=== PATIENT | female | born 1940 | race Caucasian/White ===

== ENCOUNTER 2016-09-09 07:02 | Day surgery (SDC) | payer MEDICAID ==
[~2016-09-09] VITALS: Ht 149.9 cm; Wt 50.8 kg
[2016-09-09] VITALS (21 sets, daily range): BP systolic 89–148; BP diastolic 56–82
[~2016-09-09 07:02] MED LIST: ACET-1697 PO; AMLO10TA2 PO; ASPI-586 PO; Aspirin PO; CLOP75TA69 PO; CLPD75T GT; CLPD75T PO; DOCU-238 PO; DOCU100C37 PO; FLUO20CA42 PO; HYDR12.570 PO; INUL1TAB3 PO; LEVO500T80 PO; LISI20TA PO; METO-274 PO; OXYC-188 PO; PANT40TA3 PO; POLY119P5 PO; POLY17PO6 PO; TRIM100T PO
[2016-09-09] MEDS ORDERED: HEParin (CATH LAB) 2,000 ML IV ONE (07:03)
[2016-09-09] MEDS ORDERED: LIDOCAINE 1% INJ 20 ML (XYLOCAINE) VIAL ONE (07:03)
[2016-09-09] MEDS ORDERED: NS IV 1000 ML 1,000 ML ONE (07:03)
--- OUTSIDE RECORDS SUMMARY | 2016-09-09 07:06 | XMS REPORT | Continuity of Care Document ---
Author Author [facility] Organization [facility] Address Unknown Phone Unavailable Care Team Providers Care White Lead Grinder Name Role Phone ELVA FRANCO MD PCP Insurance Providers Payer Name Policy Number Subscriber Name Relationship [employer] [facility] [employer] [id number] Linette Marie 18 Self / Same As Patient Advance Directives Directive Response Recorded Date/Time Advance Directives No 10/26/15 2:19pm Health Care Power of Records Management Director No 10/26/15 2:19pm Organ Donor No 10/26/15 2:19pm Resuscitation Status Full Code 10/26/15 2:19pm Problems Active Problems Medical Problem Onset Date Status Hyponatremia Unknown Acute Peripheral vascular disease Unknown Acute Tobacco dependence Unknown Acute Medications Current Home Medications Medication Dose Units Route Directions Days/Qty Instructions Start Date Hydrochlorothiazide 12.5 Mg 12.5 Mg Oral Daily 09/22/14 Acetaminophen 500 Mg 1,000 Mg Oral Bedtime as needed for Pain TAKES 2 ( 500MG) TABLET 09/22/14 Polyethylene Glycol 3350 119 Gm 17 Gm Oral Daily as needed for Constipation 10/18/15 Docusate Sodium 100 Mg 100 Mg Oral Daily as needed for Constipation 10/18/15 Pantoprazole Sodium 40 Mg 40 Mg Oral Daily 10/18/15 Levofloxacin 500 Mg 500 Mg Oral Daily last dose 10/23/15 10/18/15 Fluoxetine Hcl 20 Mg 20 Mg Oral Bedtime 10/18/15 Amlodipine Besylate 10 Mg 10 Mg Oral Daily 10/18/15 Metoprolol Succinate 100 Mg 100 Mg Oral Daily 04/27/16 Past Home Medications Medication Directions Ordered Status Lisinopril 20 Mg Tablet, 20 Mg Oral Daily 09/22/14 Discontinued Clopidogrel Bisulfate 75 Mg Tab, 75 Mg Oral Daily 09/23/14 Discontinued [Aspirin] 81 Mg Tabec, 81 Mg Oral Daily 09/23/14 Discontinued Clopidogrel Bisulfate 75 Mg Tab, 75 Mg G Tube Daily 09/23/14 Discontinued Aspirin 81 Mg Tablet.dr, 81 Mg Oral Daily 01/31/15 Discontinued Polyethylene Glycol 3350 17 Gm Powd.pack, 17 Gm Oral Daily 02/02/15 Discontinued Docusate Sodium 100 Mg Capsule, 100 Mg Oral Twice A Day 02/02/15 Discontinued Inulin/Chromium Picolinate 1 Each Tab.chew, 1 Each Oral D 02/02/15 Discontinued Oxycodone Hcl/Acetaminophen 1 Each Tablet, 1-2 Tab Oral Every 6 Hours as needed for Pain 02/03/15 Discontinued Trimethoprim 100 Mg Tablet, 100 Mg Oral Bedtime 02/03/15 Discontinued Pantoprazole Sodium 40 Mg Tablet., 40 Mg Oral Daily 02/08/15 Discontinued Clopidogrel Bisulfate 75 Mg Tablet, 75 Mg Oral Daily 10/18/15 Discontinued Social History Social History Problem Response Recorded Date/Time Alcohol Use Denies Use 02/02/2015 10:15pm Recreational Drug Use No 02/02/2015 10:15pm Recent Foreign Travel No 10/26/2015 2:24pm Smoking Status Current Everyday Smoker 10/26/2015 2:21pm Do you dip or chew tobacco? No 02/02/2015 10:15pm Query Response Start Date Stop Date Smoking Status Current Everyday Smoker Hospital Discharge Instructions Patient Instructions Physician Instructions Plan of Care/Instructions/FU: Hold blood thinner for 5 more days before restarting. Hold Plavix. Follow up with Dr. Niño in 2 weeks. Activity as Tolerated: Yes Discharge Diet: No Restrictions Care Plan Patient Instructions:: Hold blood thinner for 5 more days before restarting. Hold Plavix.Follow up with Dr. Niño in 2 weeks. Plan of Care Discharge Date 10/26/15 4:56pm Instructions/Education Provided COLONOSCOPY Colonoscopic Polypectomy (ED) Prescriptions See Medication Section Functional Status No functional status results. Allergies, Adverse Reactions, Alerts Allergen Type Severity Reaction Status Last Updated Sulfa (Sulfonamide Antibiotics) ([id number]) Allergy Unknown Active 12/28 Cephalexin Allergy Unknown Active 09/28/07 Immunizations No immunization records. Vital Signs Acute Vital Signs Vital Response Date/Time Temperature (Fahrenheit) 97.0 degrees F (97.6 - 99.5) 10/26/2015 4:53pm Temperature (Calculated Celsius) 36.45397 degrees C (36.4 - 37.5) 10/26/2015 4:53pm Temperature Source Tympanic 10/26/2015 4:53pm Pulse Rate (adult) 65 bpm (60 - 90) 10/26/2015 4:53pm Respiratory Rate 18 bpm (12 - 24) 10/26/2015 4:53pm O2 Sat by Pulse Oximetry 99 % (88 - 100) 10/26/2015 4:53pm Blood Pressure 132/75 mm Hg 10/26/2015 4:53pm Pain Pain Intensity 0 10/26/2015 4:53pm Height (Feet) 4 feet 10/26/2015 2:25pm Height (Inches) 11.00 inches 10/26/2015 2:25pm Height (Calculated Centimeters) 149.079055 cm 10/26/2015 2:25pm Weight (Pounds) 99 pounds 10/26/2015 2:25pm Weight (Ounces) 0.0 oz 10/26/2015 2:25pm Weight (Calculated Grams) 32246.645 gm 10/26/2015 2:25pm Weight (Calculated Kilograms) 44.242229 kilograms 10/26/2015 2:25pm Calculated BMI 20.0 10/26/2015 2:25pm Results No known relevant diagnostic tests, laboratory data and/or discharge summary. Procedures Procedure Status Date Provider(s) Anesthesia for 30 minutes Active 10/26/15 KRIS NIÑO DO Encounters Encounter Location Arrival/Admit Date Discharge/Depart Date Attending Provider Departed [facility] 10/26/15 1:49pm 4:56pm KRIS NIÑO DO Departed Clinic [facility] 10/18/15 5:39am 10/18/15 10: 50am KRIS NIÑO DO
--- OUTSIDE RECORDS SUMMARY | 2016-09-09 07:06 | XMS REPORT | Continuity of Care Document ---
Author Author [facility] Organization [facility] Address Unknown Phone Unavailable Care Team Providers Care Spring Fitter Helper Name Role Phone ELVA FRANCO MD PCP Insurance Providers Payer Name Policy Number Subscriber Name Relationship [facility] [employer] [id number] Linette Marie 18 Self / Same As Patient Advance Directives Directive Response Recorded Date/Time Advance Directives No 10/26/15 2:19pm Health Care Power of Rn Documentation No 10/26/15 2:19pm Organ Donor No 10/26/15 [...] Reaction Status Last Updated Sulfa (Sulfonamide Antibiotics) ([id number]) Allergy Unknown Active 12/28 Cephalexin Allergy Unknown Active 09/28/07 Immunizations No immunization records. Vital Signs Acute Vital Signs Vital Response Date/Time Temperature (Fahrenheit) 97.0 degrees F (97.6 - 99.5) 10/26/2015 4:53pm Temperature (Calculated Celsius) 36.81328 degrees C (36.4 - 37.5) 10/26/2015 4:53pm [...] 11.00 inches 10/26/2015 2:25pm Height (Calculated Centimeters) 149.078516 cm 10/26/2015 2:25pm Weight (Pounds) 99 pounds 10/26/2015 2:25pm Weight (Ounces) 0.0 oz 10/26/2015 2:25pm Weight (Calculated Grams) 45029.645 gm 10/26/2015 2:25pm Weight (Calculated Kilograms) 44.897111 kilograms 10/26/2015 2:25pm Calculated BMI 20.0 10/26/2015 2:25pm Results No known relevant diagnostic tests, laboratory data and/or discharge summary. Procedures Procedure Status Date Provider(s) Anesthesia for 30 minutes Active 10/26/15 KRIS NIÑO DO Encounters Encounter Location Arrival/Admit Date Discharge/Depart Date Attending Provider Departed [facility] 10/26/15 1:49pm 4:56pm KRIS NIÑO DO Departed Clinic [facility] 10/18/15 5:39am 10/18/15 10: 50am KRIS NIÑO DO
[2016-09-09] MEDS ORDERED: NS IV 1000 ML 1,000 ML IV SCH ×2 (07:20→07:30)
[2016-09-09 07:45] LABS: MEAN PLATELET VOLUME 9.5 FL (7.4-10.4); RED BLOOD COUNT 3.94 10^6/uL (4.35-5.85); RED CELL DISTRIBUTION WIDTH 12.8 % (10.0-14.5); WHITE BLOOD COUNT 6.2 10^3/uL (4.3-11.0)
[2016-09-09 08:00] LABS: PROTHROMBIN TIME PATIENT 12.8 SEC (12.2-14.7)
--- NOTE | 2016-09-09 08:02 | Diagnostic Imaging Report ---
INDICATION: Preoperative evaluation, leg pain. DISCUSSION: Single portable upright view of the chest was obtained, comparison 02/06/2015. Underlying COPD is stable. Stable normal heart size. No focal consolidation, pleural fluid, or pneumothorax. No osseous abnormality. IMPRESSION: 1. Stable changes of COPD. Dictated by: Dictated on workstation # [id number]
[2016-09-09 08:09] LABS: ALBUMIN 4.2 G/DL (3.2-4.5); BILIRUBIN,TOTAL 0.3 MG/DL (0.1-1.0); CALCIUM 9.5 MG/DL (8.5-10.1); CREATININE SERUM 1.01 MG/DL (0.60-1.30); POTASSIUM 4.2 MMOL/L (3.6-5.0); TOTAL PROTEIN 7.2 G/DL (6.4-8.2)
[2016-09-09] MEDS ORDERED: FURO20TA4 PO (08:12)
[2016-09-09] MEDS ORDERED: METO100T2 PO (08:12)
[2016-09-09] MEDS ORDERED: CLOP75TA28 PO (08:12)
[2016-09-09] MEDS ORDERED: FLU TRIvalent (5 YOA+) 2016-17 (AFLURIA) 0.5 ML IM ONE (08:15)
[2016-09-09] MEDS ORDERED: MIDAZOLAM 5 MG/5 ML (VERSED) VIAL ONE (08:59)
[2016-09-09] MEDS ORDERED: fentaNYL INJECTION 100 MCG/2 ML AMP ONE (09:00)
--- NOTE | 2016-09-09 09:13 | Cardiac Procedure Note-CS/ASA ---
Pre-Procedure Note Pre-Op Procedure Note H&P Reviewed The H&P was reviewed, patient examined and no changes noted. Date H&P Reviewed: Sep 09, 2016 Time H&P Reviewed: 09:13 Conscious Sedation Pre-Proced Time Reviewed: 09:13 ASA Class: 3 Airway Mallampati Classification: ([place] appropriate class) I. II. III, IV Lungs Heart ASA score ASA 1: a normal healthy patient ASA 2: a patient with a mild systemic disease (mid diabetes, controlled hypertension, obesity x ASA 3: a patient with a severe systemic disease that limits activity (angina , COPD, prior Myocardial infarction) ASA 4: a patient with an incapacitating disease that is a constant threat to life (CHF, renal failure) ASA 5: a moribund patient not expected to survive 24 hrs. (ruptured aneurysm) ASA 6: a declared brain patient whose organs are being harvested. For emergent operations, add the letter E after the classification Grade 3 Sedation Plan: Analgesia, Amnesia, Plan communicated to team members, Discussed options with patient/fam, Discussed risks with patient/fam Note The patient is an appropriate candidate to undergo the planned procedure, sedation, and anesthesia. The patient immediately re-assessed prior to indication. RENE GHOTRA MD Sep 09, 2016 09:13
[2016-09-09] MEDS ORDERED: HEParin 1000 UNIT/ML (10ML VIAL) FOR BOLUS ONE (09:47)
[2016-09-09] MEDS ORDERED: NITROGLYCERIN DRIP 25 MG/D5W 250 ML IV ONE (09:58)
[2016-09-09] MEDS ORDERED: CLOPIDOGREL 300 MG (PLAVIX) TABLET PO ONE (10:44)
[2016-09-09] MEDS ORDERED: ASPIRIN 325 MG (5 GR) TABLET ONE (10:44)
[2016-09-09] MEDS ORDERED: ACETAMINOPHEN 500 MG TAB (TYLENOL) PO PRN (10:45)
[2016-09-09] MEDS ORDERED: PATIENT MAY USE OWN MEDS, ALL PO SCH (10:45)
[2016-09-09] MEDS: NS IV 1000 ML 1,000 ML IV SCH ×2 (10:45→20:08)
[2016-09-09] MEDS ORDERED: POLYETHYLENE GLYCOL 17 GM (MIRALAX) PACK PO PRN (10:45)
--- NOTE | 2016-09-09 11:38 | DISCHARGE SUMMARY ---
PROCEDURE PHYSICIAN: RENE GHOTRA DATE OF PROCEDURE: 09/09/2016 BRIEF HISTORY: Mrs. Myers is a 76-year-old lady with extensive peripheral arterial disease, had multiple interventions and multiple stents in the past. The patient has been seen in the office; has been having increasing pain in her lower extremity with advanced claudication exercise induced, then, pain at rest, although her SUE was normal. The patient had extensive disease that made me suspicious of prescription of peripheral arterial disease. I decided to proceed with peripheral angiogram. PROCEDURE NOTE: After explaining the procedure to the patient, all pros and cons were explained. All questions were answered. The patient signed a consent, then she was placed on the cardiac catheterization laboratory. The right groin was prepped in a sterile fashion. Local anesthesia applied to right groin. 6-Surinamese sheath was placed in the right femoral artery. Runoff of the right lower extremity was run through the sheath, then a pigtail catheter advanced abdominal aorta. Abdominal aortogram and evaluation of the bifurcation was done. Then I used a rim catheter to cross over. I advanced the rim catheter to the left common iliac artery. Runoff of the left lower extremity was done. I exchanged the rim catheter into a straight catheter. I was unable to advance the Storq wire across the SFA. I used glide wire, advanced it to the popliteal artery. Then advanced straight catheter down to the popliteal artery. In the popliteal artery, I did 2 sets of angiograms to evaluate the trifurcation then the foot artery. Then I flushed the catheter and evaluated the pressure at the popliteal artery, which was 69/47. During pullback across the popliteal artery to the mid SFA, the pressure became 112/51. Significant gradient was noted. I decided to proceed with percutaneous intervention. The patient was given 6000 units of heparin. The Storq wire was reintroduced and parked in the distal popliteal artery. Then I removed the straight catheter. I exchanged 6-Surinamese into a long and a 6-Surinamese sheath, advanced to the SFA. Then I used Lutonix 5.0 x 150 mm inflated across the distal SFA and popliteal artery for 3 minutes. Angiogram showed excellent results. Then I reevaluated the stent in the proximal SFA known to be 6.5 Supria stent. There was moderate disease. I decided to do balloon angioplasty to that area. I used 6.2 x 100 Lutonix drug-coated balloon to the proximal SFA for the in-stent restenosis. Angiogram showed excellent results at the end. The long sheath was pulled back and exchanged into short 6-Surinamese sheath. I reintroduced the pigtail catheter and I evaluated. Advanced it to the abdominal aorta, reevaluated the bifurcation. At the end of the procedure, sheath was sutured in place. Total contrast used 70 mL. Total radiation is 82 mGy. FINDINGS: 1. ABDOMINAL AORTOGRAM: Abdominal aortogram showed atherosclerotic disease in the distal abdominal aorta the proximal iliac artery. There is stent in the right common iliac artery that appeared patent with mild disease. 2. RIGHT LOWER EXTREMITY: Right lower extremity angiogram showed mild to moderate disease down to the foot. There is no significant obstructive disease. 3. LEFT LOWER EXTREMITY: Left lower extremity evaluation showed 2 stents overlapping in the proximal SFA. One stent in the distal SFA. The proximal SFA has moderate disease. The distal SFA has severe disease with 43 mmHg gradient across the lesion. Successful balloon angioplasty to the distal lesion with a drug-coated balloon Lutonix 5.0 x 150 mm with excellent results. The proximal lesion was treated with Lutonix 6.0 x 100 mm with excellent results. No residual stenosis was noted. CONCLUSION: 1. Severe in-stent restenosis in the left lower extremity in a Superia stents at the popliteal artery with moderate in-stent restenosis in the proximal SFA. Successful drug-coated balloon angioplasty using Lutonix 5.0 x 150 mm to the distal SFA and popliteal artery with excellent result. In the proximal lesion, it was in-stent restenosis successful Lutonix deployment of 6.0 x 100 mm with excellent result. No residual stenosis was noted. Good flow down to the foot. 2. Mild to moderate disease in the right lower extremity, nonobstructive disease. Patent stent in the iliac artery. 3. Atherosclerotic disease in the abdominal aorta involving the bifurcation with mild to moderate disease, nonobstructive disease. DISCUSSION AND RECOMMENDATION: I will continue maximizing medical therapy. The patient will be started on aspirin and Plavix. Add Lipitor and fish oil if tolerated. FINAL DIAGNOSES: 1. Claudication. 2. Peripheral arterial disease. 3. Hypertension. 4. Hyperlipidemia. Job ID: [id number] Dictated Date: 09/09/2016 10:57:11 Cot Assembler Date: 09/09/2016 11:37:10/courtney
[2016-09-09] MEDS ORDERED: morphine INJ 4 MG/ML 1 ML (VIAL/SYRINGE) ONE (16:06)
[2016-09-09] MEDS ORDERED: morphine INJ 4 MG/ML 1 ML (VIAL/SYRINGE) IVP PRN (16:15)
[2016-09-09] MEDS ORDERED: ATROPINE INJ 0.4 MG/ML SDV ONE (16:24)
[2016-09-09] MEDS: OMEGA 3 (FISH OIL) 1000 MG CAP PO SCH (17:00)
[2016-09-09] MEDS: METOPROLOL TART 100 MG TAB PO SCH (20:14)
[2016-09-09] MEDS ORDERED: ATORVASTATIN 10 MG (LIPITOR) TABLET PO SCH (21:00)
[2016-09-10] VITALS (9 sets, daily range): BP systolic 106–155; BP diastolic 61–91
[2016-09-10 04:38] LABS: RED BLOOD COUNT 3.38 10^6/uL (4.35-5.85); WHITE BLOOD COUNT 6.3 10^3/uL (4.3-11.0)
[2016-09-10 05:11] LABS: ANION GAP 11 MMOL/L (5-14); BLOOD UREA NITROGEN 19 MG/DL (7-18); BUN/CREATININE RATIO 23; CALCIUM 8.6 MG/DL (8.5-10.1); CARBON DIOXIDE 20 MMOL/L (21-32); CHLORIDE 108 MMOL/L (98-107); CREATININE SERUM 0.82 MG/DL (0.60-1.30); GFR ESTIMATED > 60; GLUCOSE 86 MG/DL (70-105); POTASSIUM 4.3 MMOL/L (3.6-5.0); SODIUM 139 MMOL/L (135-145)
[2016-09-10] MEDS: NS IV 1000 ML 1,000 ML IV SCH (05:35)
[2016-09-10] MEDS: OMEGA 3 (FISH OIL) 1000 MG CAP PO SCH (07:02)
[2016-09-10] MEDS ORDERED: OMG1KC PO (07:24)
[2016-09-10] MEDS ORDERED: ASPI-983 PO (07:24)
[2016-09-10] MEDS ORDERED: ATOR10TA66 PO (07:24)
--- NOTE | 2016-09-10 07:24 | Discharge Inst-Post CATH ---
Discharge Inst-CATH Post Cardiac Cath D/C Inst Follow Up/Plan Appointment with Dr. Garcia's office in 2-4 weeks CARDIAC CATH DISCHARGE INSTRUCTIONS *Hold Metformin for 48 hours post heart cath. ACTIVITY * Go Home directly and rest. * Limit activity of the leg (or wrist if it was used) for 7 days including aerobics, swimming, jogging, bicycling, etc. * Restrict stair-climbing for 7 days if possible, if not, climb up with your non -cath leg, then bring together on the same step. * Avoid lifting, pushing, pulling or excessive movement of the affected extremity for 7 days. * Customary sexual activity may be resumed after 2 days-use caution not to use a position that strains or causes pain to the affected extremity. * No driving for 24 hours. * NO SMOKING. * Avoid straining for bowel movements for 7 days. * Gentle walking on level ground is allowed. * Returning to work will depend on the type of procedure and the results. Your doctor will discuss this with you. CALL YOUR DOCTOR FOR ANY OF THE FOLLOWING: *If bleeding from the puncture site occurs- Apply gentle pressure to site with clean cloth and call your doctor or EMS. * If a knot or lump forms under the skin, increases in size, or causes pain. * If bruising appears to be worsening or moving further down your leg instead of disappearing. * Temperature above 101 F. CARE OF YOUR GROIN INCISION; * Bruising or purple discoloration of the skin near the puncture site is common. * You may shower only, no bathtub bathing for 5 days. Be careful to avoid slipping as your leg may feel stiff. * If a closure device was used on your femoral artery, please see the attached guide regarding care of the device and your leg. * REMOVE the dressing from your groin the next day after your procedure in the shower. CARE OF YOUR WRIST INCISION; * Bruising or purple discoloration of the skin near the puncture site is common. * You may shower. * DO NOT submerge wrist. * Remove dressing in 24 hours. RENE GARCIA MD Sep 10, 2016 07:24
[2016-09-10] MEDS: METOPROLOL TART 100 MG TAB PO SCH (08:25)
[2016-09-10] MEDS ORDERED: ASPIRIN E.C. 81 MG (ECOTRIN) TAB PO SCH (09:00)
[2016-09-10] MEDS ORDERED: amLODIPine 10 MG (NORVASC) TAB PO SCH (09:00)
[2016-09-10] MEDS ORDERED: FUROSEMIDE 20 MG (LASIX) TAB PO SCH (09:00)
[2016-09-10] MEDS ORDERED: PANTOPRAZOLE 40 MG (PROTONIX) TAB PO SCH (09:00)
[2016-09-10] MEDS ORDERED: CLOPIDOGREL 75 MG (PLAVIX) TABLET PO SCH (09:00)
== END 2016-09-10 10:45 | disposition home or self-care (01) ==
LOC: CATH 07:02 → ICU 11:00 → CATH 09-10 10:45
PROVIDERS: ATTEND Internal Medicine Cardiovascular Disease
DX: I70.213 Atherosclerosis of native arteries of extremities with intermittent claudication, bilateral legs (principal); T82.856A Stenosis of peripheral vascular stent, initial encounter; I70.0 Atherosclerosis of aorta; I10 Essential (primary) hypertension; R00.2 Palpitations; E78.5 Hyperlipidemia, unspecified; Z72.0 Tobacco use; Z79.899 Other long term (current) drug therapy
CPT/HCPCS: 36247; 36415; 37224; 71010; 75625; 75716; 75774; 80048; 80053; 80061; 85027; 85347; 85610; 85730; 87081

== ENCOUNTER → 2017-08-20 | Outpatient (CLI) | payer MEDICAID ==
[~2017-08-20] MED LIST changes: +ASPI-983 PO; +ATOR10TA66 PO; +CATHETER FLUSH 10 ML SYR IV PRN; +CLOP75TA28 PO; +FURO20TA4 PO; -METO-274 PO; +METO-395 PO; +METO100T12 PO; +OMG1KC PO; +REGADENOSON 0.4 MG/5 ML SYR (LEXISCAN) IV ONE
[2017-08-20 14:08] VITALS: BP 155/72
--- NOTE | 2017-08-21 12:29 | STRESS TEST ---
DATE OF SERVICE: 08/20/2017 LEXISCAN MYOVIEW STRESS TEST REPORT REFERRING PHYSICIAN: Dr. Robison. Baseline heart rate is 64, baseline blood pressure 142/75. Baseline EKG is sinus rhythm with no ischemic changes. SUMMARY: The patient was injected with 10.44 mCi of technetium-99 Myoview and the resting images were obtained. Then, the patient received 0.4 mg of Lexiscan followed by 29.9 mCi of technetium-99 Myoview. Throughout the test, there were no EKG changes. The resting and stress images were reviewed and compared in the short axis, horizontal long axis, and vertical long axis views. Review of the images showed a small left ventricle with mild decreased uptake at the mid to apical inferior wall and inferolateral wall with subtle reversibility. SSS is 5, SDS is 5. TID value is 0.99. On the gated images, the left ventricle appeared to be normal size with normal contractility. Calculated ejection fraction 86%. CONCLUSION: 1. The patient tolerated Lexiscan well. 2. Mild decrease uptake at the mid to apical inferior wall and inferolateral wall with subtle reversibility, could be due to extracardiac attenuation. 3. Small left ventricular size. Calculated ejection fraction 86%, good contractility. Job ID: [id number] DocumentID: [id number] Dictated Date: 08/21/2017 07:53:46 Fishing Reel Assembler Date: 08/21/2017 10:08:32 Dictated By: RENE GHOTRA MD
== END ==
LOC: CARD 11:56
PROVIDERS: ATTEND Internal Medicine Cardiovascular Disease
DX: I10 Essential (primary) hypertension (principal); I73.9 Peripheral vascular disease, unspecified; R00.2 Palpitations; R06.02 Shortness of breath
CPT/HCPCS: 78452; 93017; 93306

== ENCOUNTER 2017-09-03 08:41 | Day surgery (SDC) | payer MEDICAID ==
[2017-09-03] VITALS (9 sets, daily range): BP systolic 132–155; BP diastolic 58–76
[~2017-09-03] VITALS: Ht 149.9 cm; Wt 52.6 kg
[~2017-09-03 08:41] MED LIST changes: -CATHETER FLUSH 10 ML SYR IV PRN; -REGADENOSON 0.4 MG/5 ML SYR (LEXISCAN) IV ONE
--- OUTSIDE RECORDS SUMMARY | 2017-09-03 08:45 | XMS REPORT | Continuity of Care Document ---
Author Author [facility] Organization [facility] Address Unknown Phone Unavailable Allergies Active Description Code Type Severity Reaction Onset Reported/Identified Relationship to Patient Clinical Status Yes cephalexin [id number] Drug Allergy Unknown N/A 09/28/2007 Yes Sulfa (Sulfonamide Antibiotics) [id number] Drug Allergy Unknown N/A 2007 Medications There is no data. 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 09/23/2014 OZZY WALTON MD Ot 785.1 PALPITATIONS 11/01/2014 NWAGWU, ISIDORE O MARKETING CAMPAIGN ANALYST Ot 356.9 11/01/2014 NWAGWU, ISIDORE O MARKETING CAMPAIGN ANALYST Ot 401.9 11/01/2014 NWAGWU, ISIDORE O MARKETING CAMPAIGN ANALYST Ot 443.9 11/01/2014 NWAGWU, ISIDORE O MARKETING CAMPAIGN ANALYST Ot V17.49 11/11/2014 NWAGWU, ISIDORE O MARKETING CAMPAIGN ANALYST Ot 356.9 11/11/2014 NWAGWU, ISIDORE O MARKETING CAMPAIGN ANALYST Ot 401.9 11/11/2014 NWAGWU, ISIDORE O MARKETING CAMPAIGN ANALYST Ot 443.9 11/11/2014 NWAGWU, ISIDORE O MARKETING CAMPAIGN ANALYST Ot V17.49 01/05/2015 NWAGWU, ISIDORE O MARKETING CAMPAIGN ANALYST Ot 356.9 01/05/2015 NWAGWU, ISIDORE O MARKETING CAMPAIGN ANALYST Ot 401.9 01/05/2015 NWAGWU, ISIDORE O MARKETING CAMPAIGN ANALYST Ot 443.9 01/05/2015 NWAGWU, ISIDORE O MARKETING CAMPAIGN ANALYST Ot V17.49 01/17/2015 NWAGWU, ISIDORE O MARKETING CAMPAIGN ANALYST Ot 305.1 01/17/2015 NWAGWU, ISIDORE O MARKETING CAMPAIGN ANALYST Ot 401.9 01/17/2015 NWAGWU, ISIDORE O MARKETING CAMPAIGN ANALYST Ot 443.9 01/17/2015 NWAGWU, ISIDORE O MARKETING CAMPAIGN ANALYST Ot V17.49 02/02/2015 OZZY WALTON MD Ot 276.1 HYPOSMOLALITY 02/02/2015 OZZY WALTON MD Ot 305.1 TOBACCO USE DISORDER 02/02/2015 OZZY WALTON MD Ot 355.8 MONONEURITIS LEG NOS 02/02/2015 OZZY WALTON MD Ot 401.9 HYPERTENSION NOS 02/02/2015 OZZY WALTON MD Ot 412 OLD MYOCARDIAL INFARCT 02/02/2015 OZZY WALTON MD Ot 440.0 AORTIC ATHEROSCLEROSIS 02/02/2015 OZZY WALTON MD Ot 440.22 ATHEROSCL JAMUL ARTER EXTREMITIES W/ R 02/02/2015 OZZY WALTON MD Ot 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 02/02/2015 OZZY WALTON MD Ot 996.74 OTH COMPL DUE TO OTH VASCULAR DEVICE,IMP 02/08/2015 NAHOMY ODONNELL MD Ot 285.1 AC POSTHEMORRHAG ANEMIA 02/08/2015 NAHOMY ODONNELL MD Ot 305.1 TOBACCO USE DISORDER 02/08/2015 NAHOMY ODONNELL MD Ot 356.9 IDIO PERIPH NEURPTHY NOS 02/08/2015 NAHOMY ODONNELL MD Ot 401.9 HYPERTENSION NOS 02/08/2015 NAHOMY ODONNELL MD Ot 440.20 ATHEROSCLEROSIS JAMUL ARTERIES EXTREMIT 02/08/2015 NAHOMY ODONNELL MD Ot 482.89 PNEUMONIA DUE TO OTHER SPECIFIED BACTERI 02/08/2015 NAHOMY ODONNELL MD Ot 518.81 ACUTE RESPIRATORY FAILURE 02/08/2015 NAHOMY ODONNELL MD Ot 998.11 HEMOR COMPLIC A PROCEDURE 06/26/2015 LONNIE PERLA Ot I10 06/26/2015 LONNIE PERLA Ot I73.89 06/26/2015 LONNIE PERLA Ot R00.2 06/26/2015 LONNIE PERAL Ot Z72.0 10/18/2015 KRIS NIÑO DO, Ot K62.89 OTHER SPECIFIED DISEASES OF ANUS AND REC 10/18/2015 KRIS NIÑO DO Ot Z01.818 ENCOUNTER FOR OTHER PREPROCEDURAL EXAMIN 10/19/2015 NIÑO KRIS BARRERA Ot K62.89 OTHER SPECIFIED DISEASES OF ANUS AND REC 10/19/2015 NIÑO KRIS BARRERA Ot Z01.818 ENCOUNTER FOR OTHER PREPROCEDURAL EXAMIN 10/24/2015 KRIS NIÑO DO, Ot K62.89 OTHER SPECIFIED DISEASES OF ANUS AND REC 10/24/2015 WELCH KRIS BARRERA Ot Z01.818 ENCOUNTER FOR OTHER PREPROCEDURAL EXAMIN 10/26/2015 KRIS NIÑO DO Ot K57.30 DVRTCLOS OF LG INT W/O PERFORATION OR AB 10/26/2015 NIÑO KRIS BARRERA Ot K62.1 RECTAL POLYP 10/26/2015 KRIS NIÑO DO Ot K62.89 OTHER SPECIFIED DISEASES OF ANUS AND REC 10/26/2015 NIÑO KRIS BARRERA Ot K63.5 POLYP OF COLON 10/27/2015 WELCH KRIS BARRERA Ot K57.30 DVRTCLOS OF LG INT W/O PERFORATION OR AB 10/27/2015 NIÑO KRIS BARRERA Ot K62.1 RECTAL POLYP 10/27/2015 NIÑO KRIS BARRERA Ot K62.89 OTHER SPECIFIED DISEASES OF ANUS AND REC 10/27/2015 KRIS NIÑO DO Ot K63.5 POLYP OF COLON 01/12/2016 LONNIE PERLA Ot I65.23 OCCLUSION AND STENOSIS OF BILATERAL BENDER 01/29/2016 LONNIE PERLA Ot I65.23 OCCLUSION AND STENOSIS OF BILATERAL BENDER 09/09/2016 NWLARRY CAN APRN Ot 356.9 IDIO PERIPH NEURPTHY NOS 09/09/2016 NWAGWU, ISIDORE O MARKETING CAMPAIGN ANALYST Ot 401.9 HYPERTENSION NOS 09/09/2016 NWAGWU, ISIDORE O MARKETING CAMPAIGN ANALYST Ot 443.9 PERIPH VASCULAR DIS NOS 09/09/2016 NWAGWU, ISIDORE O MARKETING CAMPAIGN ANALYST Ot V17.49 FAMILY HISTORY OF OTHER CARDIOVASCULAR D 09/09/2016 NWAGWU, ISIDORE O MARKETING CAMPAIGN ANALYST Ot 305.1 TOBACCO USE DISORDER 09/09/2016 NWAGWU, ISIDORE O MARKETING CAMPAIGN ANALYST Ot 401.9 HYPERTENSION NOS 09/09/2016 NWAGWU, ISIDORE O MARKETING CAMPAIGN ANALYST Ot 443.9 PERIPH VASCULAR DIS NOS 09/09/2016 NWAGWU, ISIDORE O MARKETING CAMPAIGN ANALYST Ot V17.49 FAMILY HISTORY OF OTHER CARDIOVASCULAR D 09/09/2016 LONNIE PERLA Ot I10 ESSENTIAL (PRIMARY) HYPERTENSION 09/09/2016 LONNIE PERLA Ot I73.89 OTHER SPECIFIED PERIPHERAL VASCULAR DISE 09/09/2016 LONNIE PERLA Ot R00.2 PALPITATIONS 09/09/2016 LONNIE PERLA Ot Z72.0 TOBACCO USE 09/09/2016 LONNIE PERLA Ot I65.23 OCCLUSION AND STENOSIS OF BILATERAL BENDER 09/10/2016 RENE GHOTRA MD Ot E78.5 HYPERLIPIDEMIA, UNSPECIFIED 09/10/2016 RENE GHOTRA MD, Ot I10 ESSENTIAL (PRIMARY) HYPERTENSION 09/10/2016 RENE GHOTRA MD Ot I70.0 ATHEROSCLEROSIS OF AORTA 09/10/2016 RENE GHOTRA MD Ot I70.213 ATHSCL JAMUL ARTERIES OF EXTRM W INTRMT 09/10/2016 RENE GHOTRA MD Ot R00.2 PALPITATIONS 09/10/2016 RENE GHOTRA MD, Ot T82.856A STENOSIS OF PERIPHERAL VASCULAR STENT, I 09/10/2016 RENE GHOTRA MD, Ot Z72.0 TOBACCO USE 09/10/2016 RENE GHOTRA MD, Ot Z79.899 OTHER FPC (CURRENT) DRUG THERAPY 09/16/2016 RENE GHOTRA MD Ot E78.5 HYPERLIPIDEMIA, UNSPECIFIED 09/16/2016 PARADISE MD, BASHAR J Ot I10 ESSENTIAL (PRIMARY) HYPERTENSION 09/16/2016 RENE GHOTRA MD J Ot I70.0 ATHEROSCLEROSIS OF AORTA 09/16/2016 RENE GHOTRA MD J Ot I70.213 ATHSCL JAMUL ARTERIES OF EXTRM W INTRMT 09/16/2016 RENE GHOTRA MD J Ot R00.2 PALPITATIONS 09/16/2016 RENE GHOTRA MD J Ot T82.856A STENOSIS OF PERIPHERAL VASCULAR STENT, I 09/16/2016 RENE GHOTRA MD J Ot Z72.0 TOBACCO USE 09/16/2016 RENE GHOTRA MD J Ot Z79.899 OTHER FPC (CURRENT) DRUG THERAPY 09/24/2016 RENE GHOTRA MD Ot E78.5 HYPERLIPIDEMIA, UNSPECIFIED 09/24/2016 RENE GHOTRA MD J Ot I10 ESSENTIAL (PRIMARY) HYPERTENSION 09/24/2016 RENE GHOTRA MD J Ot I70.0 ATHEROSCLEROSIS OF AORTA 09/24/2016 RENE GHOTRA MD Ot I70.213 ATHSCL JAMUL ARTERIES OF EXTRM W INTRMT 09/24/2016 RENE GHOTRA MD J Ot R00.2 PALPITATIONS 09/24/2016 RENE GHOTRA MD Ot T82.856A STENOSIS OF PERIPHERAL VASCULAR STENT, I 09/24/2016 RENE GHOTRA MD Ot Z72.0 TOBACCO USE 09/24/2016 RENE GHOTRA MD Ot Z79.899 OTHER FPC (CURRENT) DRUG THERAPY 06/06/2017 RENE GHOTRA MD Ot E78.5 HYPERLIPIDEMIA, UNSPECIFIED 06/06/2017 RENE GHOTRA MD J Ot I10 ESSENTIAL (PRIMARY) HYPERTENSION 06/06/2017 RENE GHOTRA MD J Ot I70.0 ATHEROSCLEROSIS OF AORTA 06/06/2017 RENE GHOTRA MD J Ot I70.213 ATHSCL JAMUL ARTERIES OF EXTRM W INTRMT 06/06/2017 RENE GHOTRA MD J Ot R00.2 PALPITATIONS 06/06/2017 RENE GHOTRA MD J Ot T82.856A STENOSIS OF PERIPHERAL VASCULAR STENT, I 06/06/2017 RENE GHOTRA MD J Ot Z72.0 TOBACCO USE 06/06/2017 RENE GHOTRA MD Ot Z79.899 OTHER PROJECT DEVELOPER (CURRENT) DRUG THERAPY 08/21/2017 RENE GHOTRA MD Ot I10 ESSENTIAL (PRIMARY) HYPERTENSION 08/21/2017 RENE GHOTRA MD, Ot I73.9 PERIPHERAL VASCULAR DISEASE, UNSPECIFIED 08/21/2017 RENE GHOTRA MD, Ot R00.2 PALPITATIONS 08/21/2017 RENE GHOTRA MD, Ot R06.02 SHORTNESS OF BREATH 08/26/2017 RENE GHOTRA MD, Ot I10 ESSENTIAL (PRIMARY) HYPERTENSION 08/26/2017 RENE GHOTRA MD, Ot I73.9 PERIPHERAL VASCULAR DISEASE, UNSPECIFIED 08/26/2017 RENE GHOTRA MD, Ot R00.2 PALPITATIONS 08/26/2017 RENE GHOTRA MD, Ot R06.02 SHORTNESS OF BREATH Procedures Code Description Performed By Performed On 00.41 PROCEDURE ON TWO VESSELS 02/01/2015 00.47 INSERTION OF THREE VASCULAR STENTS 02/01/2015 39.50 ANGIOPLASTY OF OTHER NON- CORONARY VESSEL 02/01/2015 39.90 INSEJ [id number] PERIPHERAL NON-CO 02/01/2015 88.42 CONTRAST AORTOGRAM 02/01/2015 88.47 CONTR ABD ARTERIOGRM NEC 02/01/2015 88.48 CONTRAST ARTERIOGRAM-LEG 02/01/2015 38.93 VENOUS CATHETERIZATION [facility] 02/05/2015 49.95 CONTROL ANAL HEMORRHAGE 02/05/2015 96.04 INSERT ENDOTRACHEAL TUBE 02/05/2015 96.71 CONTINUOUS INVASIVE MECHANICAL VENTILATI 02/05/2015 Results Test Result Range Automated blood complete blood count (hemogram) panel - 09/09/16 07:40 Blood leukocytes automated count (number/volume) 6.2 10*3/uL 4.3-11.0 Blood erythrocytes automated count (number/volume) 3.94 10*6/uL 4.35-5.85 Venous blood hemoglobin measurement (mass/volume) 12.8 g/dL 11.5-16.0 Blood hematocrit (volume fraction) 38 % 35-52 Automated erythrocyte mean corpuscular volume 97 [foz_us] 80-99 Automated erythrocyte mean corpuscular hemoglobin (mass per erythrocyte) 33 pg 25-34 Automated erythrocyte mean corpuscular hemoglobin concentration measurement ( mass/volume) 34 g/dL 32-36 Automated erythrocyte distribution width ratio 12.8 % 10.0-14.5 Automated blood platelet count (count/volume) 250 10*3/uL 130-400 Automated blood platelet mean volume measurement 9.5 [foz_us] 7.4-10.4 PT panel in platelet poor plasma by coagulation assay - 09/09/16 07:40 Prothrombin time (PT) in platelet poor plasma by coagulation assay 12.8 s 12.2-14.7 INR in platelet poor plasma or blood by coagulation assay 1.0 0.8-1.4 Activated partial thromboplastin time (aPTT) in platelet poor plasma bycoagulation assay - 09/09/16 07:40 Activated partial thromboplastin time (aPTT) in platelet poor plasma bycoagulation assay 28 s 24-35 Comprehensive metabolic panel - 09/09/16 07:40 Serum or plasma sodium measurement (moles/volume) 139 mmol/L 135-145 Serum or plasma potassium measurement (moles/volume) 4.2 mmol/L 3.6-5.0 Serum or plasma chloride measurement (moles/volume) 105 mmol/L 98-107 Carbon dioxide 23 mmol/L 21-32 Serum or plasma anion gap determination (moles/volume) 11 mmol/L 5-14 Serum or plasma urea nitrogen measurement (mass/volume) 23 mg/dL 7-18 Serum or plasma creatinine measurement (mass/volume) 1.01 mg/dL 0.60-1.30 Serum or plasma urea nitrogen/creatinine mass ratio 23 NRG Serum or plasma creatinine measurement with calculation of estimated glomerular filtration rate 54 NRG Serum or plasma glucose measurement (mass/volume) 98 mg/dL 70-105 Serum or plasma calcium measurement (mass/volume) 9.5 mg/dL 8.5-10.1 Serum or plasma total bilirubin measurement (mass/volume) 0.3 mg/dL 0.1-1.0 Serum or plasma alkaline phosphatase measurement (enzymatic activity/volume) 76 U/L 40-136 Serum or plasma aspartate aminotransferase measurement (enzymatic activity/ volume) 18 U/L 5-34 Serum or plasma alanine aminotransferase measurement (enzymatic activity/volume ) 10 U/L 0-55 Serum or plasma protein measurement (mass/volume) 7.2 g/dL 6.4-8.2 Serum or plasma albumin measurement (mass/volume) 4.2 g/dL 3.2-4.5 Lipid 1996 panel - 09/09/16 07:40 Serum or plasma triglyceride measurement (mass/volume) 99 mg/dL <150 Serum or plasma cholesterol measurement (mass/volume) 208 mg/dL < 200 Serum or plasma cholesterol in HDL measurement (mass/volume) 52 mg/ dL 40-60 Cholesterol in LDL [mass/volume] in serum or plasma by direct assay 139 mg/dL 1-129 Serum or plasma cholesterol in VLDL measurement (mass/volume) 20 mg/ dL 5-40 Methicillin resistant Staphylococcus aureus (MRSA) screening culture - 07:40 Methicillin resistant Staphylococcus aureus (MRSA) screening culture NEG NRG Activated partial thromboplastin time (aPTT) in platelet poor plasma bycoagulation assay - 09/09/16 13:28 Activated partial thromboplastin time (aPTT) in platelet poor plasma bycoagulation assay 80 s 24-35 Activated partial thromboplastin time (aPTT) in platelet poor plasma bycoagulation assay - 09/09/16 15:37 Activated partial thromboplastin time (aPTT) in platelet poor plasma bycoagulation assay 30 s 24-35 Automated blood complete blood count (hemogram) panel - 09/10/16 04:12 Blood leukocytes automated count (number/volume) 6.3 10*3/uL 4.3-11.0 Blood erythrocytes automated count (number/volume) 3.38 10*6/uL 4.35-5.85 Venous blood hemoglobin measurement (mass/volume) 11.0 g/dL 11.5-16.0 Blood hematocrit (volume fraction) 33 % 35-52 Automated erythrocyte mean corpuscular volume 98 [foz_us] 80-99 Automated erythrocyte mean corpuscular hemoglobin (mass per erythrocyte) 33 pg 25-34 Automated erythrocyte mean corpuscular hemoglobin concentration measurement ( mass/volume) 33 g/dL 32-36 Automated erythrocyte distribution width ratio 13.0 % 10.0-14.5 Automated blood platelet count (count/volume) 215 10*3/uL 130-400 Automated blood platelet mean volume measurement 10.0 [foz_us] 7.4-10.4 Whole blood basic metabolic panel - 09/10/16 04:12 Serum or plasma sodium measurement (moles/volume) 139 mmol/L 135-145 Serum or plasma potassium measurement (moles/volume) 4.3 mmol/L 3.6-5.0 Serum or plasma chloride measurement (moles/volume) 108 mmol/L 98-107 Carbon dioxide 20 mmol/L 21-32 Serum or plasma anion gap determination (moles/volume) 11 mmol/L 5-14 Serum or plasma urea nitrogen measurement (mass/volume) 19 mg/dL 7-18 Serum or plasma creatinine measurement (mass/volume) 0.82 mg/dL 0.60-1.30 Serum or plasma urea nitrogen/creatinine mass ratio 23 NRG Serum or plasma creatinine measurement with calculation of estimated glomerular filtration rate > NRG Serum or plasma glucose measurement (mass/volume) 86 mg/dL 70-105 Serum or plasma calcium measurement (mass/volume) 8.6 mg/dL 8.5-10.1 Encounters ACCT No. Visit Date/Time Discharge Status Pt. Type Provider Facility Loc./Unit Complaint [id number] 08/27/2017 10:00:00 08/27/2017 23:59:59 CLS Preadmit RENE GHOTRA MD [facility] CATH PAD,LEG PAIN,HTN [id number] 08/20/2017 11:56:00 08/20/2017 23:59:59 CLS Outpatient RENE GHOTRA MD [facility] CARD I10 HTN [id number] 09/09/2016 07:02:00 09/10/2016 10:45:00 DIS Outpatient RENE GHOTRA MD [facility] CATH PAD,LEG PAIN,HTN [id number] 01/11/2016 09:53:00 01/11/2016 23:59:59 CLS Outpatient LONNIE PERLA [facility] RAD CAROTID ARTERY STENOSIS [id number] 10/26/2015 13:49:00 10/26/2015 16:56:00 DIS Outpatient KRIS NIÑO DO [facility] SDC RECTAL PAIN [id number] 10/18/2015 05:39:00 10/18/2015 10:50:00 DIS Outpatient KRIS NIÑO DO [facility] PREOP RECTAL PAIN [id number] 06/12/2015 13:48:00 06/12/2015 23:59:59 CLS Outpatient LONNIE PERLA [facility] RAD HTN,PAD, PALPITATIONS [id number] 02/04/2015 17:45:00 02/08/2015 14:55:00 DIS Inpatient NAHOMY ODONNELL MD [facility] SURGICAL POST OP HEMORRHOIDECTOMY BLEEDING ON PLAVIX [id number] 01/30/2015 16:00:00 02/02/2015 16:28:00 DIS Inpatient OZZY WALTON MD [facility] CSD PVD LLE [id number] 01/05/2015 11:48:00 01/05/2015 23:59:59 CLS Outpatient NWAGWU, ISIDORE O MARKETING CAMPAIGN ANALYST [facility] CARD HTN,CLAUDICATION [id number] 10/28/2014 12:40:00 10/28/2014 23:59:59 CLS Outpatient MAHOGANY, ISIDORE O MARKETING CAMPAIGN ANALYST [facility] RAD NEUROPATHY, HTN, HEART DISEASE, CLAUDICATION [id number] 09/22/2014 08:22:00 09/23/2014 13:30:00 DIS Outpatient OZZY WALTON MD [facility] CATH PAD [id number] 09/05/2017 11:00:00 PEN Preadclement GHOTRA MD, RENE [place] [facility] CATH ABN STRESS,HTN,HLP
[2017-09-03] MEDS ORDERED: NS IV 1000 ML 1,000 ML ONE (08:49)
[2017-09-03] MEDS ORDERED: HEParin (CATH LAB) 2,000 ML IV ONE (08:49)
[2017-09-03 09:18] LABS: HEMOGLOBIN 13.3 G/DL (11.5-16.0); MEAN PLATELET VOLUME 9.7 FL (7.4-10.4); RED BLOOD COUNT 4.08 10^6/uL (4.35-5.85); RED CELL DISTRIBUTION WIDTH 12.9 % (10.0-14.5); WHITE BLOOD COUNT 9.8 10^3/uL (4.3-11.0)
[2017-09-03] MEDS ORDERED: NS IV 1000 ML 1,000 ML IV SCH ×2 (09:30→11:01)
[2017-09-03 09:34] LABS: INR 0.9 (0.8-1.4); PROTHROMBIN TIME PATIENT 12.3 SEC (12.2-14.7)
[2017-09-03 09:42] LABS: ALBUMIN 4.6 GM/DL (3.2-4.5); BILIRUBIN,TOTAL 0.3 MG/DL (0.1-1.0); CALCIUM 9.6 MG/DL (8.5-10.1); CREATININE SERUM 0.94 MG/DL (0.60-1.30); POTASSIUM 4.3 MMOL/L (3.6-5.0); TOTAL PROTEIN 7.6 GM/DL (6.4-8.2)
[2017-09-03] MEDS ORDERED: ASPI-983 PO (09:43)
[2017-09-03] MEDS ORDERED: CALC300T4 PO (09:43)
[2017-09-03] MEDS ORDERED: ROSU10TA PO (09:43)
[2017-09-03] MEDS ORDERED: ACET-168 PO (09:43)
[2017-09-03] MEDS ORDERED: OMG1KC PO (09:43)
--- NOTE | 2017-09-03 09:43 | Diagnostic Imaging Report ---
Indication: Coronary artery disease Portable chest 9:25 AM Heart size and pulmonary vascular normal. Lungs are clear. There are no effusions or pneumothoraces. Impression: No acute abnormalities in the chest Dictated by: Dictated on workstation # [id number]
[2017-09-03] MEDS ORDERED: INFLUENZA TRIvalent 2017-2018 0.5 ML/45 MCG SYR IM ONE (09:45)
--- NOTE | 2017-09-03 10:12 | Cardiac Procedure Note-CS/ASA ---
Pre-Procedure Note Pre-Op Procedure Note H&P Reviewed The H&P was reviewed, patient examined and no changes noted. Date H&P Reviewed: Sep 03, 2017 Time H&P Reviewed: 10:12 Conscious Sedation Pre-Proced Time Reviewed: 10:12 ASA Class: 3 Airway Mallampati Classification: (north fork appropriate class) I. II. III, IV Lungs Heart ASA score ASA 1: a normal healthy patient ASA 2: a patient with a mild systemic disease (mid diabetes, controlled hypertension, obesity x ASA 3: a patient with a severe systemic disease that limits activity (angina , COPD, prior Myocardial infarction) ASA 4: a patient with an incapacitating disease that is a constant threat to life (CHF, renal failure) ASA 5: a moribund patient not expected to survive 24 hrs. (ruptured aneurysm) ASA 6: a declared brain patient whose organs are being harvested. For emergent operations, add the letter E after the classification Grade 3 Sedation Plan: Analgesia, Amnesia, Plan communicated to team members, Discussed options with patient/fam, Discussed risks with patient/fam Note The patient is an appropriate candidate to undergo the planned procedure, sedation, and anesthesia. The patient immediately re-assessed prior to indication. RENE GHOTRA MD Sep 03, 2017 10:12
[2017-09-03] MEDS ORDERED: MIDAZOLAM 5 MG/5 ML (VERSED) VIAL ONE (10:17)
[2017-09-03] MEDS ORDERED: fentaNYL INJECTION 100 MCG/2 ML AMP ONE (10:18)
[2017-09-03] MEDS ORDERED: LIDOCAINE 1% INJ 50 ML (XYLOCAINE) VIAL ONE (10:18)
--- NOTE | 2017-09-03 11:07 | Discharge Inst-Post CATH ---
Discharge Inst-CATH Post Cardiac Cath D/C Inst Follow Up/Plan Appointment with Dr. Garcia's office in 2-4 weeks CARDIAC CATH DISCHARGE INSTRUCTIONS *Hold Metformin for 48 hours post heart cath. ACTIVITY * Go Home directly and rest. * Limit activity of the leg (or wrist if it was used) for 7 days including aerobics, swimming, jogging, bicycling, etc. * Restrict stair-climbing for 7 days if possible, if not, climb up with your non -cath leg, then bring together on the same step. * Avoid lifting, pushing, pulling or excessive movement of the affected extremity for 7 days. * Customary sexual activity may be resumed after 2 days-use caution not to use a position that strains or causes pain to the affected extremity. * No driving for 24 hours. * NO SMOKING. * Avoid straining for bowel movements for 7 days. * Gentle walking on level ground is allowed. * Returning to work will depend on the type of procedure and the results. Your doctor will discuss this with you. CALL YOUR DOCTOR FOR ANY OF THE FOLLOWING: *If bleeding from the puncture site occurs- Apply gentle pressure to site with clean cloth and call your doctor or EMS. * If a knot or lump forms under the skin, increases in size, or causes pain. * If bruising appears to be worsening or moving further down your leg instead of disappearing. * Temperature above 101 F. CARE OF YOUR GROIN INCISION; * Bruising or purple discoloration of the skin near the puncture site is common. * You may shower only, no bathtub bathing for 5 days. Be careful to avoid slipping as your leg may feel stiff. * If a closure device was used on your femoral artery, please see the attached guide regarding care of the device and your leg. * REMOVE the dressing from your groin the next day after your procedure in the shower. CARE OF YOUR WRIST INCISION; * Bruising or purple discoloration of the skin near the puncture site is common. * You may shower. * DO NOT submerge wrist. * Remove dressing in 24 hours. RENE GARCIA MD Sep 03, 2017 11:07
[2017-09-03] MEDS ORDERED: PATIENT MAY USE OWN MEDS, ALL PO SCH (11:15)
--- NOTE | 2017-09-03 11:17 | Cardiac Cath Report ---
Cardiac Cath Report Physician (s)/Malt House Supervisor (s) Physician RENE GHOTRA MD Pre-Procedure Diagnosis Pre-Procedure Diagnosis: Chest pain, coronary artery disease Post-Procedure Note Procedure Start Date: Sep 03, 2017 Name of Procedure: Left heart catheterization Left ventricular pressure Abdominal aortogram with bilateral lower extremity runoff Findings/Procedure Note PROCEDURE NOTE: After explaining the procedure to the patient, all pros and cons were explained, all questions were answered. The patient signed the consent and then she was placed on the cardiac catheterization laboratory. The patient was placed on the cardiac catheterization laboratory. Groin was prepped SL fashion local anesthesia was used. Sheath placed in the right femoral artery. Nilson right and left catheter were used to access the coronary system. Pigtail was used to access the left ventricular cavity. I used a long stork wire as an exchange wire due to difficulty in advancing through the iliac artery Left ventriculogram was not done, pressure was measured Aortic aortogram with runoff to the lower extremities down to the knee was done At the end of the procedure the sheath was removed. Closure device was used FINDINGS: Hemodynamics LV 130/12, end-diastolic pressure of 12 Aorta 129/59 mean of 83 ANATOMY: Left Main is free of obstructive disease Left Anterior Descending is small and tortuous with mild disease nonobstructive disease Left Circumflex is tortuous with wpha-ic-bbojucky disease nonobstructive disease Right Coronory Artery is dominant artery with mild disease proximally nonobstructive disease LV Gram was not done, pressure was measured Aorta evaluation done with abdominal aortogram and bilateral lower except he ran out of, atherosclerotic disease in the abdominal aorta, origin of the renal arteries appeared normal, no aneurysm or dissection. Right iliac stent is patent, mild disease in the SFA down to the trifurcation. Brisk flow Left iliac is patent, has proximal SFA stent that is patent, popliteal stent that is patent with brisk flow down to the trifurcation, olnx-im-fmvairji disease otherwise CONCLUSION: 1. Tortuous left coronary system with dkvl-fh-kihbvupw disease nonobstructive disease 2. Dominant right coronary artery with mild disease nonobstructive disease 3. Normal left ventricular end-diastolic pressure 4. Atherosclerotic disease in the abdominal aorta, no dissection or aneurysm 5. Patent right iliac stent with mild to moderate disease in the SFA on the right side, nonobstructive disease 6. Atherosclerotic disease on the left leg, patent stent in the proximal SFA and popliteal artery with [id number]-[id number] disease otherwise. DISCUSSION AND RECOMMENDATION: Medical therapy is recommended no intervention is needed Anesthesia Type: Conscious Sedation Estimated blood loss (mL): 10 ml Contrast Amount: 52 ml Total Radiation Dose: 246 mGy Post-Procedure Diagnosis Post-operative diagnosis: Coronary artery disease Peripheral arterial disease Hypertension Hyperlipidemia RENE GHOTRA MD Sep 03, 2017 11:17
== END 2017-09-03 15:10 | disposition home or self-care (01) ==
LOC: CATH 08:41 → SURG 11:19 → CATH 15:10
PROVIDERS: ATTEND Internal Medicine Cardiovascular Disease
DX: I25.10 Atherosclerotic heart disease of native coronary artery without angina pectoris (principal); I70.203 Unspecified atherosclerosis of native arteries of extremities, bilateral legs; I10 Essential (primary) hypertension; E78.5 Hyperlipidemia, unspecified; Z88.1 Allergy status to other antibiotic agents; Z88.2 Allergy status to sulfonamides; Z88.8 Allergy status to other drugs, medicaments and biological substances; F17.210 Nicotine dependence, cigarettes, uncomplicated; I65.23 Occlusion and stenosis of bilateral carotid arteries; Z79.899 Other long term (current) drug therapy
CPT/HCPCS: 36415; 36430; 71045; 75630; 80053; 80061; 85027; 85610; 85730; 87081; 93458

== ENCOUNTER 2020-01-18 05:42 | Outpatient (RCR) | payer MEDICAID ==
[~2020-01-18] VITALS: Ht 147.3 cm; Wt 52.8 kg
[~2020-01-18 05:42] MED LIST changes: +ACET-168 PO; +AMLO-251 PO; -AMLO10TA2 PO; +ASPI-1238 PO; -ASPI-983 PO; +CALC300T4 PO; -METO-395 PO; +MTP100TCR PO; -PANT40TA3 PO; +PANT40TA52 PO; +ROSU10TA22 PO
[2020-01-18] MEDS ORDERED: TRIM100T PO (12:58)
[2020-01-18] MEDS ORDERED: LOSA25TA41 PO (12:58)
[2020-04-13] MEDS ORDERED: AMLO-250 PO (12:36)
[2020-04-13] MEDS ORDERED: METO-461 PO (12:36)
[2020-04-13] MEDS ORDERED: LOSA25TA2 PO (12:36)
== END 2020-04-17 | disposition home or self-care (01) ==
LOC: PREOP 05:42
PROVIDERS: ATTEND Surgery
DX: Z01.818 Encounter for other preprocedural examination (principal)

== ENCOUNTER 2020-03-17 11:22 | Emergency (ER) | payer MEDICAID ==
[~2020-03-17] VITALS: Ht 59 cm; Wt 52.6 kg
[~2020-03-17 11:22] MED LIST changes: -AMLO-251 PO; +AMLO10TA7 PO; +LOSA25TA41 PO
[2020-03-17 11:57] LABS: BILIRUBIN,URINE NEGATIVE (NEGATIVE); CLARITY,URINE CLEAR; COLOR,URINE YELLOW; GLUCOSE, URINE (UA) NEGATIVE (NEGATIVE); KETONES,URINE NEGATIVE (NEGATIVE); LEUKOCYTE ESTERASE ,URINE NEGATIVE (NEGATIVE); NITRITE,URINE NEGATIVE (NEGATIVE); PH,URINE 6.5 (5-9); PROTEIN,URINE NEGATIVE (NEGATIVE)
[2020-03-17 12:08] LABS: BASOPHILS # (AUTO) 0.1 10^3/uL (0.0-0.1); BASOPHILS % (AUTO) 1 % (0-10); EOSINOPHILS # (AUTO) 0.1 10^3/uL (0.0-0.3); EOSINOPHILS % (AUTO) 1 % (0-10); HEMATOCRIT 37 % (35-52); HEMOGLOBIN 11.9 g/dL (11.5-16.0); LYMPHOCYTES # (AUTO) 1.7 10^3/uL (1.0-4.0); LYMPHOCYTES % (AUTO) 29 % (12-44); MEAN CORPUSCULAR HEMOGLOBIN 31 pg (25-34); MEAN CORPUSCULAR HGB CONC 32 g/dL (32-36); MEAN CORPUSCULAR VOLUME 97 fL (80-99); MEAN PLATELET VOLUME 9.6 fL (9.0-12.2); MONOCYTES # (AUTO) 0.6 10^3/uL (0.0-1.0); MONOCYTES % (AUTO) 10 % (0-12); NEUTROPHILS # (AUTO) 3.4 10^3/uL (1.8-7.8); NEUTROPHILS % (AUTO) 57 % (42-75); PLATELET COUNT 270 10^3/uL (130-400); WHITE BLOOD COUNT 5.8 10^3/uL (4.3-11.0)
--- NOTE | 2020-03-17 12:12 | ED GI ---
General Chief Complaint: Rect Problems Stated Complaint: RECTAL BLEEDING Nursing Triage Note: PT ARRIVES TODAY FROM HOME WITH C/O BLEEDING AFTER WIPING FROM A BM. PT HAS HISTORY OF BLEEDING RECTUM FROM HEMORRHOIDS. PT STATES 6-[address] BELL AND MICHAEL DID SURGERY ON THE HEMORRHOIDS. Sepsis Screen: No Definite Risk Source of Information: Patient Exam Limitations: No Limitations History of Present Illness Date Seen by Provider: Mar 17, 2020 Time Seen by Provider: 12:08 Initial Comments To ER with reports of rectal bleeding. She had hemorrhoid surgery 6-7 years ago. This morning she had a bowel movement without bleeding but when she wiped with toilet paper she did have some blood on the toilet paper. She then had a bowel movement for S here in the emergency room without blood. She otherwise feels fine but has some chronic rectal pain following the hemorrhoid surgery 6-7 years ago but states been getting worse. She states she was sent home last time and had to be rushed back to the hospital for hemorrhaging and would like to be admitted now. Timing/Duration: 1-2 Days Severity/Quality: Moderate Radiation: No Radiation Activities at Onset: None Associated Symptoms: Denies Symptoms (1) Allergies and Home Medications Allergies Coded Allergies: Sulfa (Sulfonamide Antibiotics) (Verified Allergy, Unknown, 09/28/07) cephalexin (Verified Allergy, Unknown, 09/28/07) Home Medications Aspirin 81 Mg Tablet.dr, 81 MG PO DAILY, (Reported) Calcium Carbonate 300 Mg Tab.chew, 300 MG PO QID PRN for HEARTBURN, (Reported) Clopidogrel Bisulfate 75 Mg Tablet, 75 MG PO DAILY, (Reported) Furosemide 20 Mg Tablet, 20 MG PO DAILY PRN for SWELLING, (Reported) BOTTLE DATED 12-27-16 #30 TABS Losartan Potassium 25 Mg Tablet, 25 MG PO DAILY, (Reported) Metoprolol Tartrate 100 Mg Tablet, 100 MG PO BID, (Reported) [place] 3 Polyunsat Fatty Acids 1,000 Mg Cap, 1,000 MG PO BID, (Reported) Pantoprazole Sodium 40 Mg Tablet.dr, 40 MG PO DAILY, (Reported) Rosuvastatin Calcium 10 Mg Tablet, 10 MG PO HS, (Reported) Trimethoprim 100 Mg Tablet, 100 MG PO HS, (Reported) Patient Home Medication List Home Medication List Reviewed: Yes Review of Systems Review of Systems Constitutional: see HPI EENTM: No Symptoms Reported Respiratory: No Symptoms Reported Cardiovascular: No Symptoms Reported Gastrointestinal: See HPI Genitourinary: No Symptoms Reported Musculoskeletal: no symptoms reported Skin: no symptoms reported Psychiatric/Neurological: No Symptoms Reported Endocrine: No Symptoms Reported Hematologic/Lymphatic: No Symptoms Reported Past Uuygcgo-Mjbsaa-Bnzewv Hx Patient Social History Alcohol Use: Denies Use Recreational Drug Use: No Smoking Status: Light Tobacco Smoker Type Used: Cigarettes 2nd Hand Smoke Exposure: Yes Recent Foreign Travel: No Contact w/Someone Who Travel: No Recent Infectious Disease Expo: No Recent Hopitalizations: No Immunizations Up To Date Tetanus Booster (TDap): Unknown Past Medical History Surgeries: Yes (APPENDECTOMY, CHOLEY, L SHOULDER R-CUFF, HEMERRHOIDS) Abdominal, Coronary Stent, Hysterectomy Respiratory: No COPD Cardiac: Yes Heart Attack, Hypertension Neurological: No Reproductive Disorders: No 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 0.0oz. [id number]; 151.00 BMI Method:Stated General Appearance: WD/WN, no apparent distress Respiratory: no respiratory distress, no accessory muscle use Gastrointestinal: normal bowel sounds, non tender, soft Genital/Rectal: other (there is a small erythematous/ulcerated hemorrhoid without active bleeding but is likely the source of her previous bleeding this morning.) Neurologic/Psychiatric: alert, normal mood/affect, oriented x 3 Skin: normal color, warm/dry Progress/Results/Core Measures Results/Orders Lab Results Laboratory Tests Test 03/17/20 11:52 03/17/20 12:00 Range/Units Urine Color YELLOW Urine Clarity CLEAR Urine pH 6.5 5-9 Urine Specific [place] <=1.005 1.016-1.022 Urine Protein NEGATIVE NEGATIVE Urine Glucose (UA) NEGATIVE NEGATIVE Urine Ketones NEGATIVE NEGATIVE Urine Nitrite NEGATIVE NEGATIVE Urine Bilirubin NEGATIVE NEGATIVE Urine Urobilinogen 0.2 < = 1.0 MG/DL Urine Leukocyte Esterase NEGATIVE NEGATIVE Urine RBC (Auto) NEGATIVE NEGATIVE Urine RBC NONE /HPF Urine WBC NONE /HPF Urine Squamous Epithelial Cells 25-50 H /HPF Urine Crystals PRESENT H /LPF Urine Amorphous Sediment FEW EVELIA URATES H /LPF Urine Bacteria FEW H /HPF Urine Casts NONE /LPF Urine Mucus NEGATIVE /LPF Urine Culture Indicated NO White Blood Count 5.8 4.3-11.0 10^3/uL Red Blood Count 3.81 3.80-5.11 10^6/uL Hemoglobin 11.9 11.5-16.0 g/dL Hematocrit 37 35-52 % Mean Corpuscular Volume 97 80-99 fL Mean Corpuscular Hemoglobin 31 25-34 pg Mean Corpuscular Hemoglobin Concent 32 32-36 g/dL Red Cell Distribution Width 13.0 10.0-14.5 % Platelet Count 270 130-400 10^3/uL Mean Platelet Volume 9.6 9.0-12.2 fL Immature Granulocyte % (Auto) 1 % Neutrophils (%) (Auto) 57 42-75 % Lymphocytes (%) (Auto) 29 12-44 % Monocytes (%) (Auto) 10 0-12 % Eosinophils (%) (Auto) 1 0-10 % Basophils (%) (Auto) 1 0-10 % Neutrophils # (Auto) 3.4 1.8-7.8 10^3/uL Lymphocytes # (Auto) 1.7 1.0-4.0 10^3/uL Monocytes # (Auto) 0.6 0.0-1.0 10^3/uL Eosinophils # (Auto) 0.1 0.0-0.3 10^3/uL Basophils # (Auto) 0.1 0.0-0.1 10^3/uL Immature Granulocyte # (Auto) 0.1 0.0-0.1 10^3/uL Prothrombin Time 12.3 12.2-14.7 SEC INR Comment 0.9 0.8-1.4 Sodium Level 131 L 135-145 MMOL/L Potassium Level 4.4 3.6-5.0 MMOL/L Chloride Level 103 98-107 MMOL/L Carbon Dioxide Level 20 L 21-32 MMOL/L Anion Gap 8 5-14 MMOL/L Blood Urea Nitrogen 15 7-18 MG/DL Creatinine 1.00 0.60-1.30 MG/DL Estimat Glomerular Filtration Rate 54 BUN/Creatinine Ratio 15 Glucose Level 99 70-105 MG/DL Calcium Level 9.1 8.5-10.1 MG/DL Corrected Calcium 8.9 8.5-10.1 MG/DL Total Bilirubin 0.3 0.1-1.0 MG/DL Aspartate Amino Transf (AST/SGOT) 18 5-34 U/L Alanine Aminotransferase (ALT/SGPT) 10 0-55 U/L Alkaline Phosphatase 69 40-136 U/L Total Protein 7.4 6.4-8.2 GM/DL Albumin 4.3 3.2-4.5 GM/DL My Orders Orders - LILIANA RUBALCAVA APRN Cbc With Automated Diff (03/17/20 11:42) Comprehensive Metabolic Panel (03/17/20 11:42) Protime With Inr (03/17/20 11:42) Ed Iv/Invasive Line Start (03/17/20 11:42) Ua Culture If Indicated (03/17/20 11:42) Vital Signs/I&O 03/17/20 11:36 Temp 36.7 Pulse 71 Resp 16 B/P (MAP) 173/84 (113) Pulse Ox 100 O2 Delivery Room Air Blood Pressure Mean: 113 Departure Communication (Admissions) Patient is a big fan of Dr. Bell, she wanted to be admitted. I don't feel that is necessary. Dr. Bell does happen to be in house and was going to come visit her when he got out of a meeting but she didn't want to wait that long. She decided to go on home. Impression Primary Impression: Hemorrhoids Qualified Codes: K64.9 - Unspecified hemorrhoids Disposition: HOME, SELF-CARE Condition: Stable Departure-Patient Inst. Decision time for Depature: 12:12 Referrals: ELVA FRANCO MD (PCP/Family) Primary Care Physician Patient Instructions: Hemorrhoids Add. Discharge Instructions: . Increase water intake. Return to ER for any worsening or heavy bleeding. All discharge instructions reviewed with patient and/or family. Voiced understanding. LILIANA RUBALCAVA APRN Mar 17, 2020 12:12
[2020-03-17 12:23] LABS: AMORPHOUS SEDIMENT,UR FEW AMOR URATES /LPF; BACTERIA,URINE FEW /HPF; SQUAMOUS EPITHELIAL CELL,UR 25-50 /HPF
[2020-03-17 12:24] LABS: ALBUMIN 4.3 GM/DL (3.2-4.5)
[2020-03-17 12:25] LABS: INR 0.9 (0.8-1.4); POTASSIUM 4.4 MMOL/L (3.6-5.0); PROTHROMBIN TIME PATIENT 12.3 SEC (12.2-14.7)
[2020-03-17 12:26] LABS: CALCIUM 9.1 MG/DL (8.5-10.1)
[2020-03-17 12:27] LABS: TOTAL PROTEIN 7.4 GM/DL (6.4-8.2)
[2020-03-17 12:29] LABS: BILIRUBIN,TOTAL 0.3 MG/DL (0.1-1.0)
[2020-03-17 13:38] VITALS: BP 153/99
== END 2020-03-17 13:38 | disposition home or self-care (01) ==
LOC: EDUNIT# 11:22 → ER 11:23
DX: K64.8 Other hemorrhoids (principal); I25.2 Old myocardial infarction; I10 Essential (primary) hypertension; F17.210 Nicotine dependence, cigarettes, uncomplicated; Z98.890 Other specified postprocedural states; Z88.2 Allergy status to sulfonamides; Z88.1 Allergy status to other antibiotic agents; Z79.82 Long term (current) use of aspirin; Z79.02 Long term (current) use of antithrombotics/antiplatelets; Z95.5 Presence of coronary angioplasty implant and graft
CPT/HCPCS: 36415; 80053; 81000; 85025; 85610

== ENCOUNTER 2020-04-18 05:31 | Outpatient (RCR) | payer MEDICAID ==
[~2020-04-18] VITALS: Ht 149 cm; Wt 52.7 kg
[~2020-04-18 05:31] MED LIST changes: +AMLO-250 PO; +AMLO-251 PO; -AMLO10TA7 PO; +LOSA25TA2 PO; +METO-461 PO
== END 2020-04-18 10:14 | disposition home or self-care (01) ==
LOC: PREOP 05:31
PROVIDERS: ATTEND Surgery
DX: Z01.812 Encounter for preprocedural laboratory examination (principal); Z20.828 Contact with and (suspected) exposure to other viral communicable diseases
CPT/HCPCS: 87635

== ENCOUNTER 2020-04-20 10:47 | Day surgery (SDC) | payer MEDICAID ==
[~2020-04-20] VITALS: Ht 149 cm; Wt 53.0 kg
[2020-04-20] MEDS ORDERED: LACTATED RINGERS 1,000 ML IV ONE (10:52)
[2020-04-20] MEDS ORDERED: FLEET ENEMA ADULT 1 EA BTL ONE (10:52)
[2020-04-20] MEDS ORDERED: LACTATED RINGERS 1,000 ML IV STA (10:56)
[2020-04-20 11:10] VITALS: BP 153/79
--- NOTE | 2020-04-20 11:35 | NUR ---
PT UP TO BSC WITH ASSISTANCE AFTER 1ST FLEETS ENEMA. SMALL RESULTS FROM BM.
[2020-04-20] MEDS ORDERED: FLEET ENEMA ADULT 1 EA BTL PR ONE (11:45)
--- NOTE | 2020-04-20 11:45 | NUR ---
PT ASSISTED UP TO BSC. MINIMAL RESULTS FROM BM.
--- NOTE | 2020-04-20 11:55 | NUR ---
PT ASSISTED UP TO BSC- MINIMAL BM RESULTS. PT ASKED WHEN PROCEDURE WOULD BE STARTING- EXPLAINED THAT WE WERE WAITING ON DR. NIÑO- "WELL HE HAD BETTER HURRY UP! I'M GETTING TIRED OF THIS CRAP." RELAYED PT MESSAGE TO DR. NIÑO IN OR.
--- NOTE | 2020-04-20 12:10 | NUR ---
PT ASSISTED UP TO BSC- SMALL RESULTS FROM BM. SON AT BEDSIDE.
[2020-04-20] MEDS ORDERED: PROPOFOL INJECTION 50 ML IV ONE (12:20)
[2020-04-20] MEDS ORDERED: MIDAZOLAM 2 MG/2 ML (VERSED) VIAL ONE (12:20)
--- NOTE | 2020-04-20 12:35 | NUR ---
PT ASSISTED UP TO BSC- SMALL BM RESULTS. SON REMAINS AT BEDSIDE.
--- NOTE | 2020-04-20 12:59 | Progress Note-Pre Operative ---
Pre-Operative Progress Note H&P Reviewed The H&P was reviewed, patient examined and no changes noted. Date Seen by Provider: Apr 20, 2020 Time Seen by Provider: 12:58 Date H&P Reviewed: Apr 20, 2020 Time H&P Reviewed: 12:59 Pre-Operative Diagnosis: rectal pain blood in stool KRIS NIÑO DO Apr 20, 2020 12:59
[2020-04-20 13:45] VITALS: BP 118/59
[2020-04-20 13:50] VITALS: BP 98/52
--- NOTE | 2020-04-20 13:51 | Progress Note-Post Operative ---
Post-Operative Progess Note Surgeon (s)/Automotive Machinist (s) Surgeon KRIS NIÑO DO Automotive Machinist: Chico Rosenberg, MS3 Pre-Operative Diagnosis rectal pain blood in stool Post-Operative Diagnosis Sigmoid polyp Rectal polyp x 2 Diverticulosis Procedure & Operative Findings Date of Procedure 04/20/20 Procedure Performed/Findings Flexible sigmoidoscopy with snare polypectomy x 3 Anesthesia Type per bank manager Estimated Blood Loss Estimated blood loss (mL): minimal Specimens/Packing Specimens Removed colon polyps KRIS NIÑO DO Apr 20, 2020 13:51
[2020-04-20 13:55] VITALS: BP 98/52
--- NOTE | 2020-04-20 13:57 | Discharge Inst-Simple/Standard ---
Discharge Inst-Standard Patient Instructions/Follow Up Plan of Care/Instructions/FU: Hold plavix and aspirin 5 more days then restart. Activity as Tolerated: Yes Discharge Diet: Regular Diet KRIS NIÑO DO Apr 20, 2020 13:57
[2020-04-20 14:25] VITALS: BP 101/58
--- NOTE | 2020-04-20 14:54 | Anesthesia-General Post-Op ---
MAC Patient Condition Mental Status/LOC: Same as Preop Cardiovascular: Satisfactory Nausea/Vomiting: Absent Respiratory: Satisfactory Pain: Controlled Complications: Absent Post Op Complications Complications None Follow Up Care/Instructions Patient Instructions None needed. Anesthesiology Discharge Order Discharge Order Patient is doing well, no complaints, stable vital signs, no apparent adverse anesthesia problems. No complications reported per nursing. BRYNN JESUS CRNA Apr 20, 2020 14:54
--- NOTE | 2020-04-20 21:55 | OPERATIVE REPORT ---
DATE OF SERVICE: 04/20/2020 EPREOPERATIVE DIAGNOSES: Rectal pain, blood in stool. POSTOPERATIVE DIAGNOSES: Sigmoid colon polyp, rectal polyp x2, diverticulosis. PROCEDURE: Flexible sigmoidoscopy with snare polypectomy x3. SURGEON: Kris Bell DO ANESTHESIA: Per BASIC SCIENCES DEAN. ESTIMATED BLOOD LOSS: Minimal. COMPLICATIONS: None. INDICATIONS: The patient is a 79-year-old female with rectal pain and blood in stool. She understands risks and benefits of procedure and wished to proceed with procedure. Consent was signed in the chart. DESCRIPTION OF PROCEDURE: The patient was taken to the endoscopy suite, placed in left lateral recumbent position. Timeout was performed. Digital rectal exam was performed. There were no palpable polyps, masses or ulcerations. Scope was inserted in the rectum, advanced through the rectum into the sigmoid colon noting a significant amount of diverticulosis. Prep was adequate with irrigation and suction. Still had some difficulty visualizing due to patient's colon not wanting to distend. Scope was then slowly retracted back. There is a small inflammatory appearing polyp, which was present, which snare polypectomy was performed. Scope was then continuously retracted back into the rectum where there were two other small inflammatory appearing polyps, which snare polypectomy was performed. Scope was also retroflexed noting no other pathology. Scope was returned to its normal position, slowly withdrawn until completely removed. The patient tolerated procedure well without any complications. She was taken to recovery room in stable condition. RECOMMENDATIONS: The patient will follow up on biopsies in 2 or 3 weeks. I would have her hold her Plavix and aspirin for approximately 5 more days and then restart due to increased risk of bleeding due to the polypectomy. Any issues before that be seen at that time. Job ID: [id number] DocumentID: [id number] Dictated Date: 04/20/2020 14:01:42 Turnaround Engineer Date: 04/20/2020 21:55:20 Dictated By: KRIS BELL DO
== END 2020-04-20 14:30 | disposition home or self-care (01) ==
LOC: ENDO 10:47
PROVIDERS: ATTEND Surgery
DX: D12.5 Benign neoplasm of sigmoid colon (principal); K62.1 Rectal polyp; K57.30 Diverticulosis of large intestine without perforation or abscess without bleeding; I73.9 Peripheral vascular disease, unspecified; I10 Essential (primary) hypertension; I65.23 Occlusion and stenosis of bilateral carotid arteries; I25.10 Atherosclerotic heart disease of native coronary artery without angina pectoris; J44.9 Chronic obstructive pulmonary disease, unspecified; F17.210 Nicotine dependence, cigarettes, uncomplicated; Z79.02 Long term (current) use of antithrombotics/antiplatelets; Z88.1 Allergy status to other antibiotic agents; Z95.5 Presence of coronary angioplasty implant and graft; Z79.82 Long term (current) use of aspirin; Z86.010 Personal history of colon polyps; Z79.899 Other long term (current) drug therapy; Z88.8 Allergy status to other drugs, medicaments and biological substances; Z88.2 Allergy status to sulfonamides
CPT/HCPCS: 88305

== ENCOUNTER 2021-11-14 08:39 | Day surgery (SDC) | payer MEDICAID ==
[~2021-11-14] VITALS: Ht 149.8 cm; Wt 45.8 kg
[2021-11-14] VITALS (11 sets, daily range): BP systolic 117–158; BP diastolic 65–77
[~2021-11-14 08:39] MED LIST changes: -DOCU-238 PO; +DOCU-26 PO; -LEVO500T80 PO; +LEVO500T81 PO
[2021-11-14] MEDS ORDERED: LIDOCAINE 1% INJ 20 ML VIAL ONE (08:48)
[2021-11-14] MEDS ORDERED: HEParin (CATH LAB) 2,000 ML IV ONE (08:48)
[2021-11-14] MEDS ORDERED: NS IV 1000 ML 1,000 ML ONE (08:48)
[2021-11-14] MEDS ORDERED: NS IV 1000 ML 1,000 ML IV SCH ×2 (09:00→11:30)
[2021-11-14 09:26] LABS: HEMATOCRIT 35 % (35-52); HEMOGLOBIN 11.5 g/dL (11.5-16.0); MEAN CORPUSCULAR HEMOGLOBIN 32 pg (25-34); MEAN CORPUSCULAR HGB CONC 33 g/dL (32-36); MEAN CORPUSCULAR VOLUME 97 fL (80-99); MEAN PLATELET VOLUME 9.2 fL (9.0-12.2); PLATELET COUNT 288 10^3/uL (130-400); WHITE BLOOD COUNT 6.3 10^3/uL (4.3-11.0)
[2021-11-14 09:43] LABS: INR 0.9 (0.8-1.4); PROTHROMBIN TIME PATIENT 12.2 SEC (12.2-14.7)
[2021-11-14 09:47] LABS: ALBUMIN 4.2 GM/DL (3.2-4.5); POTASSIUM 4.5 MMOL/L (3.6-5.0)
[2021-11-14 09:48] LABS: CALCIUM 9.4 MG/DL (8.5-10.1)
[2021-11-14 09:49] LABS: TOTAL PROTEIN 7.3 GM/DL (6.4-8.2)
[2021-11-14 09:51] LABS: BILIRUBIN,TOTAL 0.3 MG/DL (0.1-1.0)
[2021-11-14] MEDS ORDERED: LOSA50TA63 PO (09:51)
--- NOTE | 2021-11-14 09:51 | Diagnostic Imaging Report ---
INDICATION: Coronary artery disease Single AP view of the chest is obtained. Comparison is made to the study of 09/03/2017. Heart size and pulmonary vascularity are within normal limits. There is air trapping. There is no pneumothorax or consolidation. No definite pleural fluid is seen. IMPRESSION: Background emphysema without acute abnormality or significant change. Dictated by: Dictated on workstation # [id number]
[2021-11-14 09:53] LABS: CREATININE SERUM 0.87 MG/DL (0.60-1.30)
--- NOTE | 2021-11-14 09:54 | Conscious Sedation/ASA ---
Conscious Sedation Pre-Proced Time 09:53 ASA Score 3 For ASA 3 and 4: Consider anesthesia and medical clearance. Also, for patients with a history of failed moderate sedation consider anesthesia. Airway Lungs Heart ASA score ASA 1: a normal healthy patient ASA 2: a patient with a mild systemic disease (mid diabetes, controlled hypertension, obesity x ASA 3: a patient with a severe systemic disease that limits activity (angina, COPD, prior Myocardial infarction) ASA 4: a patient with an incapacitating disease that is a constant threat to life (CHF, renal failure) ASA 5: a moribund patient not expected to survive 24 hrs. (ruptured aneurysm) ASA 6: a declared brain- patient whose organs are being harvested. For emergent operations, add the letter E after the classification Mallampati Classification Grade 3 Sedation Plan Analgesia, Amnesia, Plan communicated to team members, Discussed options with patient/fam, Discussed risks with patient/fam The patient is an appropriate candidate to undergo the planned procedure, sedation, and anesthesia. The patient immediately re-assessed prior to indication. RENE GHOTRA MD November 14, 2021 09:54
[2021-11-14] MEDS ORDERED: MIDAZOLAM 5 MG/5 ML (VERSED) VIAL ONE (10:04)
[2021-11-14] MEDS ORDERED: fentaNYL INJ 100 MCG/2 ML AMP ONE (10:04)
[2021-11-14] MEDS ORDERED: HEParin 1000 UNIT/ML (10ML VIAL) FOR BOLUS ONE (10:39)
[2021-11-14] MEDS ORDERED: NITRO DRIP 25000 MCG/D5W 250 ML IV ONE (10:43)
[2021-11-14] MEDS ORDERED: ASPIRIN 325 MG (5 GR) TABLET ONE (11:14)
[2021-11-14] MEDS ORDERED: CLOPIDOGREL 300 MG (PLAVIX) TABLET PO ONE (11:14)
[2021-11-14] MEDS ORDERED: ROSUVASTATIN 10 MG (CRESTOR) TABLET PO PRN (11:30)
[2021-11-14] MEDS ORDERED: PATIENT MAY USE OWN MEDS, ALL PO SCH (11:30)
--- NOTE | 2021-11-14 11:32 | Peripheral Report ---
Peripheral Report Physician (s)/Auto Headlight Mechanic (s) Physician RENE GHOTRA MD Pre-Procedure Diagnosis Pre-Procedure Diagnosis: Left leg claudication, peripheral arterial disease Post-Procedure Note Procedure Start Date: November 14, 2021 Name of Procedure: Bilateral lower extremities runoff Third order Additional imaging DIRECTOR OF CORPORATE RESPONSIBILITY to the left SFA and popliteal artery Findings/Procedure Note PROCEDURE NOTE: 81-year-old lady with history of peripheral arterial disease, multiple interve ntion in the past, has been having increasing claudication, had an abnormal SUE in the left lower extremity schedule for peripheral runoff. After explaining the procedure to the patient, all pros and cons were explained, all questions were answered. The patient signed the consent and then she was placed on the cardiac catheterization laboratory. The patient was placed on the cardiac catheterization laboratory. Groin was prepped SL fashion local anesthesia was used. Sheath placed in the right femoral artery, runoff to the right leg was done through the sheath. Then using UF catheter I was able to cross over and advanced a wire then placed a straight catheter did angiogram to the left lower extremity while the straight catheter in the left common femoral artery. Then I advanced the wire to the SFA and exchanged the catheter and the sheath and used 45 cm 6 Spanish sheath advanced to the proximal SFA, I was unable to advance the wire beyond the occluded distal stent in the SFA. I advanced a straight catheter and attempted to cross over with command 18 and command 14 without success. I was able to cross over with a connect catheter. I removed the straight catheter and placed a mini 18 catheter down to the tibioperoneal trunk and did angiogram to the trifurcation. Then I remove the connect wire and used command 18 wire. I proceeded with multiple inflation balloon angioplasty starting with [place] 5 x 100 then I used 5.5 x 40 and did multiple inflation within the stent up to high pressure, angiogram showed excellent results. I did DSA imaging to the trifurcation I was satisfied with the result. I pulled the catheter back and I had difficulty advancing the J-wire up to the abdominal aorta so I placed the sheath at the right common iliac artery and repeated angiogram to that aortic bifurcation, there is heavy atherosclerotic plaque, there is no dissection or aneurysm. FINDINGS: Right lower extremity: Calcified plaque at the right common iliac artery, patent stent in the common iliac and femoral artery, mild to moderate disease in the right SFA with good flow down to the trifurcation. Left lower extremity: Atherosclerotic plaque at the left common iliac and common femoral artery. Left SFA, proximal stent is patent with mild disease, distal stent is totally occluded, complex intervention with multiple balloon angioplasty with excellent results. Left tibioperoneal trunk is small with mild disease nonobstructive disease, the left anterior tibial, posterior tibial and peroneal artery has mild disease with good flow down to the foot. CONCLUSIONS: 1. Total occlusion at the distal left SFA within an old stent, complex intervention with successful balloon angioplasty with excellent results. Reestablishment of good flow down to the foot. 2. Mild to moderate disease at the right lower extremity with patent stent at the right common iliac artery, atherosclerotic plaque at the aortic bifurcation with the iliac artery, nonobstructive disease. DISCUSSION AND RECOMMENDATIONS: I will continue maximizing medical therapy, evaluate tolerance and response Anesthesia Type: Conscious Sedation Estimated blood loss (mL): 30 ml Contrast Amount: 50 ml Total Radiation Dose: 81 mGy Post-Procedure Diagnosis Post-operative diagnosis: Claudication Peripheral arterial disease Hypertension Hyperlipidemia RENE GHOTRA MD November 14, 2021 11:32
--- NOTE | 2021-11-14 11:34 | Discharge Inst-Post CATH ---
Discharge Inst-CATH/EP Problems Reviewed?: Yes Post Cardiac Cath/EP D/C Inst Follow Up/Plan Appointment with Dr. Garcia's office in 2 to 4 weeks <b>CARDIAC CATH/EP PROCEDURE DISCHARGE INSTRUCTIONS</b> ACTIVITY * Go Home directly and rest. * Limit activity of the leg (or wrist if it was used) for 7 days including aer obics, swimming, jogging, bicycling, etc. * Restrict stair-climbing for 7 days if possible, if not, climb up with your non-cath leg, then bring together on the same step. * Avoid lifting, pushing, pulling or excessive movement of the affected extremi ty for 7 days. * Customary sexual activity may be resumed after 2 days-use caution not to use a position that strains or causes pain to the affected extremity. * No driving for 24 hours. * NO SMOKING. * Avoid straining for bowel movements for 7 days. * Gentle walking on level ground is allowed. * Returning to work will depend on the type of procedure and the results. Your doctor will discuss this with you. CALL YOUR DOCTOR FOR ANY OF THE FOLLOWING: *If bleeding from the puncture site occurs- Apply gentle pressure to site with clean cloth and call your doctor or EMS. * If a knot or lump forms under the skin, increases in size, or causes pain. * If bruising appears to be worsening or moving further down your leg instead of disappearing. * Temperature above 101 F. CARE OF YOUR GROIN INCISION; * Bruising or purple discoloration of the skin near the puncture site is common. * You may shower only, no bathtub bathing for 5 days. Be careful to avoid slipping as your leg may feel stiff. * If a closure device was used on your femoral artery, please see the attached guide regarding care of the device and your leg. * Leave dressing on FOR 24 hours. CARE OF YOUR WRIST INCISION; * Bruising or purple discoloration of the skin near the puncture site is common. * You may shower. * DO NOT submerge wrist. * Leave dressing on FOR 24 hours. RENE GARCIA MD November 14, 2021 11:34
[2021-11-14] MEDS ORDERED: meTOprolol TARTRATE 50 MG (LOPRESSOR) TAB PO SCH (21:00)
[2021-11-15] MEDS ORDERED: FUROSEMIDE 20 MG (LASIX) TAB PO SCH (09:00)
[2021-11-15] MEDS ORDERED: CLOPIDOGREL 75 MG (PLAVIX) TABLET PO SCH (09:00)
[2021-11-15] MEDS ORDERED: amLODIPine 5 MG (NORVASC) TAB PO SCH (09:00)
[2021-11-15] MEDS ORDERED: LOSARTAN 50 MG (COZAAR) TAB PO SCH (09:00)
[2021-11-15] MEDS ORDERED: ASPIRIN E.C. 81 MG (ECOTRIN) TAB PO SCH (09:00)
[2021-11-15] MEDS ORDERED: PANTOPRAZOLE 40 MG (PROTONIX) TAB PO SCH (09:00)
== END 2021-11-14 17:05 | disposition home or self-care (01) ==
LOC: CATH 08:39 → ICU 11:37 → CATH 17:05
PROVIDERS: ATTEND Internal Medicine Cardiovascular Disease
DX: I70.92 Chronic total occlusion of artery of the extremities (principal); I70.291 Other atherosclerosis of native arteries of extremities, right leg; I25.10 Atherosclerotic heart disease of native coronary artery without angina pectoris; I65.23 Occlusion and stenosis of bilateral carotid arteries; I10 Essential (primary) hypertension; E78.2 Mixed hyperlipidemia; F17.210 Nicotine dependence, cigarettes, uncomplicated; Z79.82 Long term (current) use of aspirin; Z79.01 Long term (current) use of anticoagulants; Z79.899 Other long term (current) drug therapy; Z95.828 Presence of other vascular implants and grafts
CPT/HCPCS: 36247; 36248; 37224; 71045; 75716; 80053; 80061; 85027; 85610; 85730; 87081; 93005; C1725 ×2; C1760; C1769 ×4; C1887 ×3; C1894 ×3; 36415

== ENCOUNTER → 2022-10-11 | Outpatient (CLI) | payer MEDICAID ==
[~2022-10-11] MED LIST changes: +CLOP-31 PO; -CLOP75TA69 PO; +LEVO-55 PO; -LEVO500T81 PO; +LOSA50TA63 PO; +NF-CRES10T PO; -ROSU10TA22 PO
== END ==
LOC: CARD 12:55
PROVIDERS: ATTEND Internal Medicine Cardiovascular Disease
DX: I10 Essential (primary) hypertension (principal); I25.10 Atherosclerotic heart disease of native coronary artery without angina pectoris
CPT/HCPCS: 93306